=== PATIENT | male | born 1940 | race Asian ===

== ENCOUNTER 2021-01-10 13:30 | Inpatient (IN) | payer MEDICARE, MEDICAID ==
[~2021-01-10] VITALS: Ht 165.1 cm; Wt 63.4 kg
[2021-01-10] MEDS ORDERED: DEXAMETHASONE SOD PHOS 4 MG/ML 5 ML VIAL IVP ONE (14:15)
[2021-01-10] MEDS ORDERED: AZITHROMYCIN 500 MG/NS 250 ML IV ONE (14:15)
[2021-01-10] MEDS ORDERED: ONDANSETRON HCL 4 MG/2 ML VIAL IVP PRN (14:45)
[2021-01-10] MEDS ORDERED: ACETAMINOPHEN 325 MG TABLET PO PRN (14:45)
[2021-01-10] MEDS ORDERED: 0.9% SODIUM CHLORIDE 10 ML SYRINGE IVP PRN (14:45)
[2021-01-10 14:59] LABS: BASOPHILS % (AUTO) 0.2 % (0.0-2.0); EOSINOPHILS % (AUTO) 3.7 % (1.0-6.0); HEMATOCRIT 29.6 % (41-53); HEMOGLOBIN 9.6 g/dL (13.5-17.5); LYMPHOCYTES # (AUTO) 1.5 K/uL (1.0-4.8); LYMPHOCYTES % (AUTO) 17.8 % (22.0-44.0); MEAN CORPUSCULAR HEMOGLOBIN 26.1 pg (26.0-34.0); MEAN CORPUSCULAR HGB CONC 32.4 G/dL (31.0-37.0); MEAN CORPUSCULAR VOLUME 81 fL (80-100); MONOCYTES # (AUTO) 1.2 K/uL (0.1-1.0); MONOCYTES % (AUTO) 14.4 % (2.0-9.0); NEUTROPHILS # (AUTO) 5.4 K/uL (1.8-7.7); NEUTROPHILS % (AUTO) 63.9 % (40.0-70.0); PLATELET COUNT (AUTO) 242 K/uL (150-450); RED BLOOD CELL COUNT(AUTO) 3.67 MIL/uL (4.50-5.90); RED CELL DISTRIBUTION WIDTH 14.8 % (11.5-14.5)
[2021-01-10 15:10] LABS: ANION GAP 5 mmol/L (8-16); CALCIUM, TOTAL 7.8 mg/dL (8.8-10.5); CARBON DIOXIDE 26 mmol/L (22-29); CHLORIDE 110 mmol/L (98-107); CREATININE 0.81 mg/dL (0.60-1.30); GLUCOSE,RANDOM 99 mg/dL (70-110); POTASSIUM 3.3 mmol/L (3.5-5.1); SODIUM SERUM 141 mmol/L (136-145); UREA NITROGEN, BLOOD 12 mg/dL (7-18)
[2021-01-10 15:15] LABS: D-DIMER 1.6 mg/L FEU (0.00-0.50); INR 1.1 (0.9-1.1); PROTHROMBIN TIME 11.9 SEC (9.4-11.6)
[2021-01-10 15:25] LABS: B-TYPE NATRIURETIC PEPTIDE 111 pg/mL (0-100); GLOMERULAR FILTR. RATE CALC > 60 mL/min (>60)
[2021-01-10] MEDS ORDERED: ATOR40TA28 PO (15:34)
[2021-01-10] MEDS ORDERED: CLOP75TA60 PO (15:34)
[2021-01-10] MEDS ORDERED: CHOL-35 PO (15:34)
[2021-01-10] MEDS ORDERED: ASPI-1450 PO (15:34)
[2021-01-10] MEDS ORDERED: ASCO500 PO (15:34)
[2021-01-10 15:48] LABS: ALANINE AMINOTRANSFERASE 42 U/L (12-78); ALBUMIN 1.8 g/dL (3.4-5.0); ALKALINE PHOSPHATASE 30 U/L (46-116); ASPARTATE AMINOTRANSFERASE 51 U/L (15-37); BILIRUBIN,TOTAL 0.5 mg/dL (0.1-1.0); C-REACTIVE PROTEIN QUANT 9.41 mg/dL (0.00-0.30); FERRITIN 4013 ng/mL (26-388); LACTATE DEHYDROGENASE 225 U/L (85-227); TOTAL PROTEIN, SERUM 6.2 g/dL (6.4-8.2)
[2021-01-10 16:45] LABS: INFLUENZA TYPE A NEGATIVE FOR TYPE A (NEGATIVE); INFLUENZA TYPE B NEGATIVE FOR TYPE B (NEGATIVE)
[2021-01-10] MEDS ORDERED: HEPARIN SODIUM,PORCINE 5,000 UNITS/ML VIAL IVP PRN (17:00)
[2021-01-10] MEDS ORDERED: POTASSIUM CHLORIDE 20 MEQ ER TABLET PO PRN (17:15)
[2021-01-10 17:23] VITALS: BP 104/56
[2021-01-10] MEDS ORDERED: REMDESIVIR 200 MG in SODIUM CHLORIDE 0.9% 250 ML IV ONE ×2 (18:00→20:00)
[2021-01-10 18:02] LABS: HEMATOCRIT 35.5 % (41-53); HEMOGLOBIN 11.3 g/dL (13.5-17.5); MEAN CORPUSCULAR HEMOGLOBIN 25.8 pg (26.0-34.0); MEAN CORPUSCULAR HGB CONC 31.8 G/dL (31.0-37.0); MEAN CORPUSCULAR VOLUME 81 fL (80-100); PLATELET COUNT (AUTO) 242 K/uL (150-450); RED BLOOD CELL COUNT(AUTO) 4.37 MIL/uL (4.50-5.90); RED CELL DISTRIBUTION WIDTH 14.7 % (11.5-14.5)
[2021-01-10] MEDS: HEPARIN SODIUM 25000 UNITS/D5W 250 ML IV PRN (18:03)
[2021-01-10 18:18] LABS: INR 1.1 (0.9-1.1)
[2021-01-10] MEDS ORDERED: SODIUM CHLORIDE 0.9% 250 ML IV ONE (19:50)
[2021-01-10] MEDS ORDERED: SODIUM CHLORIDE 0.9% 500 ML IV ONE ×2 (19:50→23:39)
[2021-01-10 19:51] VITALS: BP 94/38
[2021-01-10 19:53] LABS: BAND NEUTROPHILS % (MANUAL) 14 % (0-5); EOSINOPHILS % (MANUAL) 1 % (1-6); LYMPHOCYTES % (MANUAL) 18 % (22-44); METAMYELOCYTES % 1 % (0-0); MONOCYTES % (MANUAL) 7 % (2-9); MYELOCYTES % 3 % (0-0); SEGMENTED NEUTROPHILS % 56 % (40-70)
[2021-01-10] MEDS: OXYGEN THERAPY IH SCH (21:08)
[2021-01-11] VITALS (7 sets, daily range): BP systolic 91–126; BP diastolic 36–68
[2021-01-11] MEDS: POTASSIUM CHL 10 MEQ/WATER 50 ML IV PRN ×3 (00:05→03:03)
[2021-01-11 06:18] LABS: HEMATOCRIT 30.2 % (41-53); HEMOGLOBIN 9.8 g/dL (13.5-17.5); MEAN CORPUSCULAR HEMOGLOBIN 26.3 pg (26.0-34.0); MEAN CORPUSCULAR HGB CONC 32.6 G/dL (31.0-37.0); MEAN CORPUSCULAR VOLUME 81 fL (80-100); PLATELET COUNT (AUTO) 273 K/uL (150-450); RED BLOOD CELL COUNT(AUTO) 3.75 MIL/uL (4.50-5.90); RED CELL DISTRIBUTION WIDTH 14.6 % (11.5-14.5)
[2021-01-11 07:08] LABS: ALANINE AMINOTRANSFERASE 37 U/L (12-78); ALBUMIN 1.7 g/dL (3.4-5.0); ALKALINE PHOSPHATASE 27 U/L (46-116); ANION GAP 11 mmol/L (8-16); ASPARTATE AMINOTRANSFERASE 46 U/L (15-37); BILIRUBIN,TOTAL 0.3 mg/dL (0.1-1.0); C-REACTIVE PROTEIN QUANT 7.71 mg/dL (0.00-0.30); CALCIUM, TOTAL 7.7 mg/dL (8.8-10.5); CARBON DIOXIDE 23 mmol/L (22-29); CHLORIDE 110 mmol/L (98-107); CREATININE 0.73 mg/dL (0.60-1.30); FERRITIN 1631 ng/mL (26-388); GLUCOSE,RANDOM 110 mg/dL (70-110); LACTATE DEHYDROGENASE 229 U/L (85-227); SODIUM SERUM 144 mmol/L (136-145); TOTAL PROTEIN, SERUM 6.1 g/dL (6.4-8.2); UREA NITROGEN, BLOOD 15 mg/dL (7-18)
[2021-01-11 07:15] LABS: GLOMERULAR FILTR. RATE CALC > 60 mL/min (>60); POTASSIUM 6.4 mmol/L (3.5-5.1)
[2021-01-11 07:50] LABS: BAND NEUTROPHILS % (MANUAL) 4 % (0-5); LYMPHOCYTES % (MANUAL) 23 % (22-44); METAMYELOCYTES % 2 % (0-0); MONOCYTES % (MANUAL) 5 % (2-9); MYELOCYTES % 1 % (0-0); SEGMENTED NEUTROPHILS % 65 % (40-70)
[2021-01-11] MEDS: CLOPIDOGREL BISULFATE 75 MG TABLET PO SCH (08:55)
[2021-01-11] MEDS: CHOLECALCIFEROL (VIT D3) 1,000 UNITS [25 MCG] TABLET PO SCH (08:55)
[2021-01-11] MEDS: ASPIRIN 81 MG CHEWABLE TABLET PO SCH (08:55)
[2021-01-11] MEDS: ATORVASTATIN CALCIUM 40 MG TABLET PO SCH (08:56)
[2021-01-11] MEDS: DEXAMETHASONE SOD PHOS 4 MG/ML VIAL IVP SCH (09:38)
[2021-01-11] MEDS: OXYGEN THERAPY IH SCH ×2 (09:38→21:04)
[2021-01-11] MEDS: HEPARIN SODIUM,PORCINE 5,000 UNITS/ML VIAL IVP PRN (19:04)
[2021-01-11] MEDS: FAMOTIDINE 20 MG TABLET PO SCH (21:04)
[2021-01-11] MEDS: REMDESIVIR 100 MG in SODIUM CHLORIDE 0.9% 250 ML IV SCH (21:04)
[2021-01-12] MEDS: HEPARIN SODIUM 25000 UNITS/D5W 250 ML IV PRN (01:52)
[2021-01-12 05:16] VITALS: BP 118/63
[2021-01-12 06:15] LABS: HEMATOCRIT 29.9 % (41-53); HEMOGLOBIN 9.7 g/dL (13.5-17.5); MEAN CORPUSCULAR HEMOGLOBIN 26.2 pg (26.0-34.0); MEAN CORPUSCULAR HGB CONC 32.6 G/dL (31.0-37.0); MEAN CORPUSCULAR VOLUME 81 fL (80-100); PLATELET COUNT (AUTO) 354 K/uL (150-450); RED BLOOD CELL COUNT(AUTO) 3.72 MIL/uL (4.50-5.90); RED CELL DISTRIBUTION WIDTH 14.9 % (11.5-14.5)
[2021-01-12 06:27] LABS: D-DIMER 0.75 mg/L FEU (0.00-0.50)
[2021-01-12 06:52] LABS: BAND NEUTROPHILS % (MANUAL) 5 % (0-5); LYMPHOCYTES % (MANUAL) 24 % (22-44); METAMYELOCYTES % 1 % (0-0); MONOCYTES % (MANUAL) 7 % (2-9); MYELOCYTES % 1 % (0-0); SEGMENTED NEUTROPHILS % 62 % (40-70)
[2021-01-12 07:10] LABS: ALANINE AMINOTRANSFERASE 42 U/L (12-78); ALBUMIN 1.8 g/dL (3.4-5.0); ALKALINE PHOSPHATASE 30 U/L (46-116); ANION GAP 8 mmol/L (8-16); ASPARTATE AMINOTRANSFERASE 42 U/L (15-37); BILIRUBIN,TOTAL 0.3 mg/dL (0.1-1.0); CALCIUM, TOTAL 7.4 mg/dL (8.8-10.5); CARBON DIOXIDE 24 mmol/L (22-29); CHLORIDE 109 mmol/L (98-107); CREATININE 0.78 mg/dL (0.60-1.30); FERRITIN 3369 ng/mL (26-388); GLUCOSE,RANDOM 106 mg/dL (70-110); LACTATE DEHYDROGENASE 250 U/L (85-227); POTASSIUM 3.2 mmol/L (3.5-5.1); SODIUM SERUM 141 mmol/L (136-145); TOTAL PROTEIN, SERUM 6.1 g/dL (6.4-8.2); UREA NITROGEN, BLOOD 17 mg/dL (7-18)
[2021-01-12 07:15] LABS: GLOMERULAR FILTR. RATE CALC > 60 mL/min (>60)
[2021-01-12 08:20] VITALS: BP 105/58
[2021-01-12] MEDS: CLOPIDOGREL BISULFATE 75 MG TABLET PO SCH (09:23)
[2021-01-12] MEDS: CHOLECALCIFEROL (VIT D3) 1,000 UNITS [25 MCG] TABLET PO SCH (09:23)
[2021-01-12] MEDS: ASPIRIN 81 MG CHEWABLE TABLET PO SCH (09:23)
[2021-01-12] MEDS: FAMOTIDINE 20 MG TABLET PO SCH ×2 (09:23→20:00)
[2021-01-12] MEDS: OXYGEN THERAPY IH SCH ×2 (09:23→20:00)
[2021-01-12] MEDS: DEXAMETHASONE SOD PHOS 4 MG/ML VIAL IVP SCH (09:23)
[2021-01-12] MEDS: ATORVASTATIN CALCIUM 40 MG TABLET PO SCH (09:23)
[2021-01-12 12:00] VITALS: BP 99/51
[2021-01-12 15:25] LABS: POTASSIUM 4.3 mmol/L (3.5-5.1)
[2021-01-12 16:21] VITALS: BP 100/52
[2021-01-12 16:48] LABS: MAGNESIUM 2.2 mg/dL (1.80-2.40); PHOSPHORUS 2.6 mg/dL (2.5-4.9)
[2021-01-12] MEDS: REMDESIVIR 100 MG in SODIUM CHLORIDE 0.9% 250 ML IV SCH (20:01)
[2021-01-12 20:25] VITALS: BP 110/65
[2021-01-13 00:36] VITALS: BP 110/59
[2021-01-13 04:34] VITALS: BP 104/55
[2021-01-13 07:30] LABS: MEAN CORPUSCULAR HEMOGLOBIN 26.2 pg (26.0-34.0); MEAN CORPUSCULAR HGB CONC 32.4 G/dL (31.0-37.0); MEAN CORPUSCULAR VOLUME 81 fL (80-100); PLATELET COUNT (AUTO) 388 K/uL (150-450); RED BLOOD CELL COUNT(AUTO) 3.84 MIL/uL (4.50-5.90); RED CELL DISTRIBUTION WIDTH 14.8 % (11.5-14.5)
[2021-01-13] MEDS: ATORVASTATIN CALCIUM 40 MG TABLET PO SCH (07:55)
[2021-01-13] MEDS: ASPIRIN 81 MG CHEWABLE TABLET PO SCH (07:55)
[2021-01-13] MEDS: CHOLECALCIFEROL (VIT D3) 1,000 UNITS [25 MCG] TABLET PO SCH (07:55)
[2021-01-13] MEDS: CLOPIDOGREL BISULFATE 75 MG TABLET PO SCH (07:55)
[2021-01-13] MEDS: FAMOTIDINE 20 MG TABLET PO SCH ×2 (07:56→20:24)
[2021-01-13] MEDS: OXYGEN THERAPY IH SCH ×2 (07:56→20:23)
[2021-01-13] MEDS: DEXAMETHASONE SOD PHOS 4 MG/ML VIAL IVP SCH (07:56)
[2021-01-13 08:30] LABS: ALANINE AMINOTRANSFERASE 47 U/L (12-78); ALKALINE PHOSPHATASE 30 U/L (46-116); ANION GAP 7 mmol/L (8-16); ASPARTATE AMINOTRANSFERASE 43 U/L (15-37); BILIRUBIN,TOTAL 0.4 mg/dL (0.1-1.0); C-REACTIVE PROTEIN QUANT 2.67 mg/dL (0.00-0.30); CALCIUM, TOTAL 7.9 mg/dL (8.8-10.5); CARBON DIOXIDE 26 mmol/L (22-29); CHLORIDE 106 mmol/L (98-107); FERRITIN 2898 ng/mL (26-388); GLUCOSE,RANDOM 93 mg/dL (70-110); LACTATE DEHYDROGENASE 252 U/L (85-227); SODIUM SERUM 139 mmol/L (136-145); TOTAL PROTEIN, SERUM 6.5 g/dL (6.4-8.2); UREA NITROGEN, BLOOD 14 mg/dL (7-18)
[2021-01-13 08:32] LABS: GLOMERULAR FILTR. RATE CALC > 60 mL/min (>60)
[2021-01-13 08:35] LABS: D-DIMER 0.63 mg/L FEU (0.00-0.50)
[2021-01-13 08:38] VITALS: BP 109/62
[2021-01-13 08:42] LABS: BAND NEUTROPHILS % (MANUAL) 8 % (0-5); LYMPHOCYTES % (MANUAL) 19 % (22-44); MONOCYTES % (MANUAL) 18 % (2-9); MYELOCYTES % 1 % (0-0); SEGMENTED NEUTROPHILS % 54 % (40-70)
[2021-01-13] MEDS: HEPARIN SODIUM,PORCINE 5,000 UNITS/ML VIAL IVP PRN ×2 (08:54→22:33)
[2021-01-13 12:00] VITALS: BP 104/58
[2021-01-13 16:23] VITALS: BP 107/53
[2021-01-13 19:50] VITALS: BP 108/57
[2021-01-13] MEDS: REMDESIVIR 100 MG in SODIUM CHLORIDE 0.9% 250 ML IV SCH (20:24)
[2021-01-14] VITALS (7 sets, daily range): BP systolic 95–149; BP diastolic 51–89
[2021-01-14 06:33] LABS: HEMATOCRIT 29.4 % (41-53); HEMOGLOBIN 9.8 g/dL (13.5-17.5); MEAN CORPUSCULAR HEMOGLOBIN 26.3 pg (26.0-34.0); MEAN CORPUSCULAR HGB CONC 33.3 G/dL (31.0-37.0); MEAN CORPUSCULAR VOLUME 79 fL (80-100); PLATELET COUNT (AUTO) 399 K/uL (150-450); RED BLOOD CELL COUNT(AUTO) 3.72 MIL/uL (4.50-5.90)
[2021-01-14 06:45] LABS: D-DIMER 0.56 mg/L FEU (0.00-0.50)
[2021-01-14 06:56] LABS: BAND NEUTROPHILS % (MANUAL) 8 % (0-5); LYMPHOCYTES % (MANUAL) 20 % (22-44); MONOCYTES % (MANUAL) 17 % (2-9); MYELOCYTES % 1 % (0-0); SEGMENTED NEUTROPHILS % 54 % (40-70)
[2021-01-14 07:24] LABS: ALANINE AMINOTRANSFERASE 53 U/L (12-78); ALKALINE PHOSPHATASE 29 U/L (46-116); ANION GAP 6 mmol/L (8-16); ASPARTATE AMINOTRANSFERASE 47 U/L (15-37); BILIRUBIN,TOTAL 0.4 mg/dL (0.1-1.0); C-REACTIVE PROTEIN QUANT 1.86 mg/dL (0.00-0.30); CALCIUM, TOTAL 7.6 mg/dL (8.8-10.5); CARBON DIOXIDE 24 mmol/L (22-29); CHLORIDE 103 mmol/L (98-107); CREATININE 0.86 mg/dL (0.60-1.30); FERRITIN 2435 ng/mL (26-388); GLUCOSE,RANDOM 92 mg/dL (70-110); LACTATE DEHYDROGENASE 249 U/L (85-227); POTASSIUM 3.6 mmol/L (3.5-5.1); SODIUM SERUM 133 mmol/L (136-145); TOTAL PROTEIN, SERUM 6.3 g/dL (6.4-8.2); UREA NITROGEN, BLOOD 17 mg/dL (7-18)
[2021-01-14 07:32] LABS: GLOMERULAR FILTR. RATE CALC > 60 mL/min (>60)
[2021-01-14] MEDS: OXYGEN THERAPY IH SCH ×2 (08:00→08:06)
[2021-01-14] MEDS: DEXAMETHASONE SOD PHOS 4 MG/ML VIAL IVP SCH (08:40)
[2021-01-14] MEDS: CLOPIDOGREL BISULFATE 75 MG TABLET PO SCH (08:40)
[2021-01-14] MEDS: ASPIRIN 81 MG CHEWABLE TABLET PO SCH (08:40)
[2021-01-14] MEDS: CHOLECALCIFEROL (VIT D3) 1,000 UNITS [25 MCG] TABLET PO SCH (08:41)
[2021-01-14] MEDS: ATORVASTATIN CALCIUM 40 MG TABLET PO SCH (08:41)
[2021-01-14] MEDS: FAMOTIDINE 20 MG TABLET PO SCH ×2 (08:41→20:19)
[2021-01-14] MEDS: HEPARIN SODIUM 25000 UNITS/D5W 250 ML IV PRN (10:32)
[2021-01-14 11:26] LABS: THYROID STIMULATING HORMONE 1.41 uIU/mL (0.36-3.74)
[2021-01-14] MEDS: REMDESIVIR 100 MG in SODIUM CHLORIDE 0.9% 250 ML IV SCH (20:25)
[2021-01-15] VITALS: BP 100/47
[2021-01-15 04:35] VITALS: BP 114/59
[2021-01-15 07:00] LABS: HEMOGLOBIN 9.9 g/dL (13.5-17.5); MEAN CORPUSCULAR HEMOGLOBIN 26.2 pg (26.0-34.0); MEAN CORPUSCULAR HGB CONC 32.9 G/dL (31.0-37.0); MEAN CORPUSCULAR VOLUME 80 fL (80-100); PLATELET COUNT (AUTO) 398 K/uL (150-450); RED BLOOD CELL COUNT(AUTO) 3.78 MIL/uL (4.50-5.90); RED CELL DISTRIBUTION WIDTH 14.9 % (11.5-14.5)
[2021-01-15 07:14] LABS: ALANINE AMINOTRANSFERASE 54 U/L (12-78); ALKALINE PHOSPHATASE 31 U/L (46-116); ANION GAP 8 mmol/L (8-16); ASPARTATE AMINOTRANSFERASE 40 U/L (15-37); BILIRUBIN,TOTAL 0.5 mg/dL (0.1-1.0); CALCIUM, TOTAL 7.6 mg/dL (8.8-10.5); CARBON DIOXIDE 23 mmol/L (22-29); CHLORIDE 100 mmol/L (98-107); GLOMERULAR FILTR. RATE CALC > 60 mL/min (>60); GLUCOSE,RANDOM 113 mg/dL (70-110); SODIUM SERUM 131 mmol/L (136-145); TOTAL PROTEIN, SERUM 6.3 g/dL (6.4-8.2); UREA NITROGEN, BLOOD 16 mg/dL (7-18)
[2021-01-15 07:37] VITALS: BP 102/52
[2021-01-15 07:44] LABS: BAND NEUTROPHILS % (MANUAL) 2 % (0-5); LYMPHOCYTES % (MANUAL) 28 % (22-44); MONOCYTES % (MANUAL) 3 % (2-9); SEGMENTED NEUTROPHILS % 67 % (40-70)
[2021-01-15] MEDS: HEPARIN SODIUM,PORCINE 5,000 UNITS/ML VIAL IVP PRN (09:21)
[2021-01-15] MEDS: FAMOTIDINE 20 MG TABLET PO SCH ×2 (09:23→20:11)
[2021-01-15] MEDS: ASPIRIN 81 MG CHEWABLE TABLET PO SCH (09:23)
[2021-01-15] MEDS: ATORVASTATIN CALCIUM 40 MG TABLET PO SCH (09:23)
[2021-01-15] MEDS: CHOLECALCIFEROL (VIT D3) 1,000 UNITS [25 MCG] TABLET PO SCH (09:23)
[2021-01-15] MEDS: DEXAMETHASONE SOD PHOS 4 MG/ML VIAL IVP SCH (09:24)
[2021-01-15] MEDS: OXYGEN THERAPY IH SCH ×2 (09:29→20:00)
[2021-01-15] MEDS: CLOPIDOGREL BISULFATE 75 MG TABLET PO SCH (09:44)
[2021-01-15 11:05] VITALS: BP 101/54
[2021-01-15 16:20] VITALS: BP 104/53
[2021-01-15 19:52] VITALS: BP 103/63
[2021-01-16 00:05] VITALS: BP 95/58
[2021-01-16] MEDS: HEPARIN SODIUM,PORCINE 5,000 UNITS/ML VIAL IVP PRN ×2 (00:41→10:56)
[2021-01-16 04:32] VITALS: BP 108/66
[2021-01-16] MEDS: FAMOTIDINE 20 MG TABLET PO SCH ×2 (08:04→20:09)
[2021-01-16] MEDS: ASPIRIN 81 MG CHEWABLE TABLET PO SCH (08:04)
[2021-01-16] MEDS: DEXAMETHASONE SOD PHOS 4 MG/ML VIAL IVP SCH (08:04)
[2021-01-16] MEDS: CHOLECALCIFEROL (VIT D3) 1,000 UNITS [25 MCG] TABLET PO SCH (08:05)
[2021-01-16] MEDS: ATORVASTATIN CALCIUM 40 MG TABLET PO SCH (08:05)
[2021-01-16] MEDS: OXYGEN THERAPY IH SCH ×2 (08:15→20:15)
[2021-01-16 08:21] VITALS: BP 109/63
[2021-01-16] MEDS: CLOPIDOGREL BISULFATE 75 MG TABLET PO SCH (10:26)
[2021-01-16 12:47] VITALS: BP 96/54
[2021-01-16 16:26] VITALS: BP 92/66
[2021-01-16 20:35] VITALS: BP 108/57
[2021-01-16] MEDS ORDERED: HEPARIN SODIUM,PORCINE 5,000 UNITS/ML VIAL IVP PRN ×2 (20:46→21:00)
[2021-01-17] VITALS (7 sets, daily range): BP systolic 100–126; BP diastolic 56–67
[2021-01-17 07:25] LABS: D-DIMER 0.62 mg/L FEU (0.00-0.50)
[2021-01-17 07:27] LABS: ANION GAP 11 mmol/L (8-16); C-REACTIVE PROTEIN QUANT 1.25 mg/dL (0.00-0.30); CALCIUM, TOTAL 8.1 mg/dL (8.8-10.5); CARBON DIOXIDE 25 mmol/L (22-29); CHLORIDE 101 mmol/L (98-107); CREATININE 0.94 mg/dL (0.60-1.30); GLUCOSE,RANDOM 106 mg/dL (70-110); POTASSIUM 4.1 mmol/L (3.5-5.1); SODIUM SERUM 137 mmol/L (136-145); UREA NITROGEN, BLOOD 17 mg/dL (7-18)
[2021-01-17 07:29] LABS: GLOMERULAR FILTR. RATE CALC > 60 mL/min (>60)
[2021-01-17] MEDS: ASPIRIN 81 MG CHEWABLE TABLET PO SCH (07:34)
[2021-01-17] MEDS: CHOLECALCIFEROL (VIT D3) 1,000 UNITS [25 MCG] TABLET PO SCH (07:34)
[2021-01-17] MEDS: ATORVASTATIN CALCIUM 40 MG TABLET PO SCH (07:34)
[2021-01-17] MEDS: FAMOTIDINE 20 MG TABLET PO SCH ×2 (07:34→20:09)
[2021-01-17] MEDS: DEXAMETHASONE SOD PHOS 4 MG/ML VIAL IVP SCH (07:34)
[2021-01-17] MEDS: CLOPIDOGREL BISULFATE 75 MG TABLET PO SCH (07:34)
[2021-01-17] MEDS: OXYGEN THERAPY IH SCH ×2 (07:36→20:00)
[2021-01-18 03:35] VITALS: BP 101/62
[2021-01-18] MEDS: CLOPIDOGREL BISULFATE 75 MG TABLET PO SCH (08:12)
[2021-01-18] MEDS: ATORVASTATIN CALCIUM 40 MG TABLET PO SCH (08:12)
[2021-01-18] MEDS: ASPIRIN 81 MG CHEWABLE TABLET PO SCH (08:13)
[2021-01-18] MEDS: DEXAMETHASONE 4 MG TABLET PO SCH (08:13)
[2021-01-18] MEDS: FAMOTIDINE 20 MG TABLET PO SCH ×2 (08:13→20:06)
[2021-01-18] MEDS: CHOLECALCIFEROL (VIT D3) 1,000 UNITS [25 MCG] TABLET PO SCH (08:13)
[2021-01-18] MEDS: OXYGEN THERAPY IH SCH ×2 (08:21→20:06)
[2021-01-18 08:36] VITALS: BP 95/50
[2021-01-18 11:11] VITALS: BP 115/63
[2021-01-18 15:31] VITALS: BP 94/49
[2021-01-18 19:41] VITALS: BP 100/66
[2021-01-19 00:08] VITALS: BP 102/56
[2021-01-19 04:49] VITALS: BP 101/57
[2021-01-19] MEDS: ATORVASTATIN CALCIUM 40 MG TABLET PO SCH (07:53)
[2021-01-19] MEDS: CLOPIDOGREL BISULFATE 75 MG TABLET PO SCH (07:53)
[2021-01-19] MEDS: CHOLECALCIFEROL (VIT D3) 1,000 UNITS [25 MCG] TABLET PO SCH (07:53)
[2021-01-19] MEDS: DEXAMETHASONE 4 MG TABLET PO SCH (07:53)
[2021-01-19] MEDS: FAMOTIDINE 20 MG TABLET PO SCH (07:53)
[2021-01-19] MEDS: ASPIRIN 81 MG CHEWABLE TABLET PO SCH (07:53)
[2021-01-19] MEDS: OXYGEN THERAPY IH SCH (07:55)
[2021-01-19 08:21] VITALS: BP 96/50
[2021-01-19 10:57] VITALS: BP 97/47
[2021-01-19] MEDS ORDERED: FAMO20 PO (12:44)
[2021-01-19] MEDS ORDERED: DEXA4 PO (12:44)
== END 2021-01-19 13:53 | DRG 177 ==
LOC: EMS 13:30 → 5N 14:43
PROVIDERS: ADMIT Internal Medicine; ATTEND Internal Medicine
PROC: XW033E5 Introduction of Remdesivir Anti-infective into Peripheral Vein, Percutaneous Approach, New Technology Group 5 (ICD-10-PCS; principal; 2021-01-10)
DX: U07.1 COVID-19 (principal); J12.82 Pneumonia due to coronavirus disease 2019; J96.01 Acute respiratory failure with hypoxia; D68.59 Other primary thrombophilia; E44.0 Moderate protein-calorie malnutrition; I69.954 Hemiplegia and hemiparesis following unspecified cerebrovascular disease affecting left non-dominant side; D64.9 Anemia, unspecified; K59.00 Constipation, unspecified; K21.9 Gastro-esophageal reflux disease without esophagitis; I10 Essential (primary) hypertension; E55.9 Vitamin D deficiency, unspecified; E78.5 Hyperlipidemia, unspecified; E87.6 Hypokalemia; Z79.01 Long term (current) use of anticoagulants; Z68.23 Body mass index [BMI] 23.0-23.9, adult
CPT/HCPCS: 71045; 80048; 80053; 82728; 83615; 83735; 83880; 84100; 84132; 84145; 84443; 84484; 85025; 85379; 85610; 85730; 86140; 87040; 87081; 87804; 92526; 92610; 93005; 93306; 97110; 97163; 97166; 97530; 97535; 99291; J0456; J1100; J1644; J3480; J7040; J7050; J8540; Q9967; 36415-L1; 36415-TC; U0003